=== PATIENT | male | born 1980 | race African-American/Black ===

== ENCOUNTER 2016-07-30 22:03 | Emergency (ER) | payer SELFPAY ==
[2016-07-31] MEDS ORDERED: SULFAMETHOXAZOLE/TRIMETHOPRIM 800-160 MG TABLET PO ONE (01:08)
--- NOTE | 2016-07-31 01:09 | ER Document Report ---
ED General - General Chief Complaint: Insect Bite Stated Complaint: POSSIBLE SPIDER BITE Notes: Patient is a 36-year-old male without past medical history who presents with 3 days of progressively worsening abscess in his right medial thigh. This is described as a constant, severely painful area. Touching the area worsens the pain. Nothing improves the pain. No history of similar symptoms in the past. He has not seen his primary care physician regarding today's concerns. He denies any associated constitutional symptoms or fever. TRAVEL OUTSIDE OF THE [place] IN LAST 30 DAYS: No - Related Data Allergies/Adverse Reactions: No Known Allergies Allergy (Unverified 07/30/16 22:34) Past Medical History - General Information source: Patient - Social History Smoking Status: Never Smoker Frequency of alcohol use: None Drug Abuse: None Lives with: Spouse/Significant other Family History: Reviewed & Not Pertinent Patient has suicidal ideation: No Patient has homicidal ideation: No Renal/ Medical History: Denies: Hx Peritoneal Dialysis Surgical Hx: Negative - Immunizations Hx Diphtheria, Pertussis, Tetanus Vaccination: Yes Review of Systems - Review of Systems Notes: Constitutional: Negative for fever. HENT: Negative for sore throat. Eyes: Negative for visual changes. Cardiovascular: Negative for chest pain. Respiratory: Negative for shortness of breath. Gastrointestinal: Negative for abdominal pain, vomiting or diarrhea. Genitourinary: Negative for dysuria. Musculoskeletal: Negative for back pain. Skin: Positive for right leg abscess. Neurological: Negative for headaches, weakness or numbness. 10 point ROS negative except as marked above and in HPI. Physical Exam - Vital signs Vitals: Temp Pulse Resp BP Pulse Ox 98.8 F 84 18 155/77 H 99 07/30/16 22:08 07/30/16 22:08 07/30/16 22:08 07/30/16 22:08 07/30/16 22:08 Interpretation: Hypertensive Notes: PHYSICAL EXAMINATION: GENERAL: Well-appearing, well-nourished and in no acute distress. HEAD: Atraumatic, normocephalic. EYES: sclera anicteric, conjunctiva are normal. ENT: Moist mucous membranes. NECK: Normal range of motion LUNGS: Normal work of breathing HEART: 2+ radial pulses bilaterally EXTREMITIES: no pitting or edema. No cyanosis. NEUROLOGICAL: No focal neurological deficits. Moves all extremities spontaneously and on command. PSYCH: Normal mood, normal affect. SKIN: Warm, Dry, normal turgor, there is a 2 x 2 centimeter abscess on the medial right Course - Re-evaluation Re-evalutation: 07/31/16 01:09 Patient presents with a right thigh abscess without surrounding cellulitis. Otherwise well in appearance, vitals show hypertension but are otherwise unremarkable. The abscess was incised and drained at the bedside without difficulty. Will be started on Bactrim. At this time will discharge with return precautions and follow-up recommendations. Verbal discharge instructions given a the bedside and opportunity for questions given. Medication warnings reviewed. Patient is in agreement with this plan and has verbalized understanding of return precautions and the need for primary care follow-up in the next 24-72 hours. - Vital Signs Vital signs: Temp Pulse Resp BP Pulse Ox 98.8 F 61 16 143/76 H 99 07/30/16 22:08 07/31/16 01:46 07/31/16 01:46 07/31/16 01:46 07/31/16 01:46 Procedures - Incision and Drainage Right Leg Type: Simple Anesthetic type: 1% Lidocaine mL's of anesthetic: 4 Blade size: 11 I&D procedure: Betadine prep applied Incision Method: Incision made by scalpel Amount/type of drainage: 5 mL of purulent drainage Discharge - Discharge Clinical Impression: Abscess of right thigh Condition: Good Disposition: HOME, SELF-CARE Additional Instructions: You were seen for an abscess that required drainage. Please clean this area with soap and water twice daily and apply a topical antibiotic. Dress the area after each cleaning. Please return if you develop fever, vomiting, the pain at the site worsens, you notice spreading redness from the area, or you have any other symptoms that are concerning to you. Prescriptions: Sulfamethoxazole/Trimethoprim [Bactrim Ds Tablet] 2 tab PO BID #10 tablet Forms: Elevated Blood Pressure
[2016-07-31] MEDS ORDERED: HYDROCODONE/ACETAMINOPHEN 5-325 MG TABLET PO ONE (01:32)
[2016-07-31 01:47] VITALS: BP 143/76
== END 2016-07-31 01:46 | disposition home or self-care (01) ==
LOC: ER 22:03
PROC: 0H9HXZZ Drainage of Right Upper Leg Skin, External Approach (ICD-10-PCS; principal; 2016-07-30)
DX: S70.361A Insect bite (nonvenomous), right thigh, initial encounter (principal); W57.XXXA Bitten or stung by nonvenomous insect and other nonvenomous arthropods, initial encounter; L02.415 Cutaneous abscess of right lower limb
CPT/HCPCS: 99283

== ENCOUNTER 2018-02-09 00:08 | Emergency (ER) | payer SELFPAY ==
[2018-02-09] MEDS ORDERED: DIPH/PERTUSS(ACELL)/TETANUS VAC/PF 0.5 ML SYR (>=10YO) IM ONE (00:22)
[2018-02-09] MEDS ORDERED: FENTANYL CITRATE INJ/PF 100 MCG/2 ML AMPUL IV PRN (00:22)
[2018-02-09] MEDS ORDERED: CEFAZOLIN 2 GM/D5W RTU 2 GM/50 ML RTUPB IV ONE (00:22)
[2018-02-09] MEDS ORDERED: DIPHENHYDRAMINE HCL 50 MG/ML VIAL ONE (00:40)
[2018-02-09] MEDS ORDERED: ONDANSETRON HCL INJ/PF 4 MG/2 ML SDV ONE (00:43)
[2018-02-09 00:53] LABS: ABSOLUTE BASOPHILS # (AUTO) 0.1 10^3/uL (0.0-0.2); ABSOLUTE EOSINOPHILS # (AUTO) 0.3 10^3/uL (0.0-0.6); ABSOLUTE LYMPHOCYTES (AUTO) 2.3 10^3/uL (0.5-4.7); ABSOLUTE MONOCYTES (AUTO) 0.5 10^3/uL (0.1-1.4); EOSINOPHILS % (AUTO) 4.6 % (0-6); HEMATOCRIT 41.3 % (37.9-51.0); HEMOGLOBIN 14.2 g/dL (13.5-17.0); LYMPHOCYTES % (AUTO) 37.6 % (13-45); MEAN CORPUSCULAR HEMOGLOBIN 29.1 pg (27.0-33.4); MEAN CORPUSCULAR HGB CONC 34.5 g/dL (32.0-36.0); MEAN CORPUSCULAR VOLUME 85 fl (80-97); MONOCYTES % (AUTO) 7.8 % (3-13); PLATELET COUNT 244 10^3/uL (150-450); RED BLOOD COUNT 4.88 10^6/uL (4.35-5.55); RED CELL DISTRIBUTION WIDTH 13.8 % (11.5-14.0); TOTAL CELLS COUNTED % (AUTO) 100 %; WHITE BLOOD COUNT 6.1 10^3/uL (4.0-10.5)
[2018-02-09 01:16] LABS: ANION GAP 12 (5-19); BLOOD UREA NITROGEN 18 mg/dL (7-20); CARBON DIOXIDE 23 mmol/L (22-30); CHLORIDE 106 mmol/L (98-107); GLUCOSE 110 mg/dL (75-110); POTASSIUM 4.5 mmol/L (3.6-5.0); SODIUM 140.9 mmol/L (137-145)
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
[2018-02-09 02:18] LABS: HEMATOCRIT 39.1 % (37.9-51.0); HEMOGLOBIN 13.2 g/dL (13.5-17.0); MEAN CORPUSCULAR HEMOGLOBIN 28.6 pg (27.0-33.4); MEAN CORPUSCULAR HGB CONC 33.8 g/dL (32.0-36.0); MEAN CORPUSCULAR VOLUME 85 fl (80-97); PLATELET COUNT 179 10^3/uL (150-450); RED BLOOD COUNT 4.61 10^6/uL (4.35-5.55); RED CELL DISTRIBUTION WIDTH 13.7 % (11.5-14.0); WHITE BLOOD COUNT 6.1 10^3/uL (4.0-10.5)
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
[2018-02-09 04:33] VITALS: BP 128/79
== END 2018-02-09 03:20 | disposition home or self-care (01) ==
LOC: ER 00:08
DX: S61.212A Laceration without foreign body of right middle finger without damage to nail, initial encounter (principal); S61.214A Laceration without foreign body of right ring finger without damage to nail, initial encounter; S61.011A Laceration without foreign body of right thumb without damage to nail, initial encounter; S21.112A Laceration without foreign body of left front wall of thorax without penetration into thoracic cavity, initial encounter; S41.112A Laceration without foreign body of left upper arm, initial encounter; X99.1XXA Assault by knife, initial encounter; Y93.89 Activity, other specified; Y92.89 Other specified places as the place of occurrence of the external cause; R00.0 Tachycardia, unspecified; Z23 Encounter for immunization
CPT/HCPCS: 99284; 90471; 96375; 96365; 86900; 86901; 36415; 86850; 85025; 85027; 80048; 71045; 90715; 12007; J3010; J0690

== ENCOUNTER 2018-02-17 14:55 | Day surgery (SDC) | payer SELFPAY ==
[2018-02-13 11:25] LABS: HEMOGLOBIN 13.2 g/dL (13.5-17.0); MEAN CORPUSCULAR HEMOGLOBIN 29.4 pg (27.0-33.4); MEAN CORPUSCULAR HGB CONC 34.8 g/dL (32.0-36.0); MEAN CORPUSCULAR VOLUME 85 fl (80-97); PLATELET COUNT 215 10^3/uL (150-450); RED BLOOD COUNT 4.49 10^6/uL (4.35-5.55); RED CELL DISTRIBUTION WIDTH 13.7 % (11.5-14.0); WHITE BLOOD COUNT 4.7 10^3/uL (4.0-10.5)
--- NOTE | 2018-02-13 11:34 | RADIOLOGY REPORT (SQ) ---
EXAM DESCRIPTION: CHEST PA/LATERAL COMPLETED DATE/TIME: 02/13/2018 11:07 am REASON FOR STUDY: PRE-OP COMPARISON: 02/09/2018 EXAM PARAMETERS: NUMBER OF VIEWS: two views TECHNIQUE: Digital Frontal and Lateral radiographic views of the chest acquired. RADIATION DOSE: NA LIMITATIONS: none FINDINGS: LUNGS AND PLEURA: No opacities, masses or pneumothorax. No pleural effusion. MEDIASTINUM AND HILAR STRUCTURES: No masses or contour abnormalities. HEART AND VASCULAR STRUCTURES: Heart normal size. No evidence for failure. BONES: No acute findings. HARDWARE: None in the chest. OTHER: No other significant finding. IMPRESSION: NO SIGNIFICANT RADIOGRAPHIC FINDING IN THE CHEST. TECHNICAL DOCUMENTATION: JOB ID: [id number] [employer]- All Rights Reserved Reading location - IP/workstation name: [email or web address]
[2018-02-13 11:50] LABS: ANION GAP 14 (5-19); BLOOD UREA NITROGEN 12 mg/dL (7-20); CALCIUM 9.4 mg/dL (8.4-10.2); CARBON DIOXIDE 25 mmol/L (22-30); CHLORIDE 104 mmol/L (98-107); GLUCOSE 98 mg/dL (75-110); SODIUM 142.5 mmol/L (137-145)
--- NOTE | 2018-02-13 20:33 | EKG REPORT ---
SEVERITY:- OTHERWISE NORMAL ECG - SINUS BRADYCARDIA ST ELEV, PROBABLE NORMAL EARLY REPOL PATTERN : Confirmed by: Rock Waters 13-Feb-2018 17:32:57
[~2018-02-17 14:55] MED LIST: CEFAZOLIN 2 GM/D5W RTU 2 GM/50 ML RTUPB IV PRN; LACTATED RINGERS 1000 ML IV PRN; LIDOCAINE 0.5% INJ-PF (5 MG/ML) 50 ML SDV SUBCUT PRN; SUCCINYLCHOLINE CHLORIDE INJ 200 MG/10 ML VIAL ONE
[2018-02-17] MEDS ORDERED: LIDOCAINE 2% INJ-PF (20 MG/ML) 10 ML AMPUL ONE (16:35)
[2018-02-17] MEDS ORDERED: MIDAZOLAM 2 MG/2 ML INJ ONE (16:35)
[2018-02-17] MEDS ORDERED: FENTANYL CITRATE INJ/PF 100 MCG/2 ML AMPUL ONE ×2 (16:35)
[2018-02-17] MEDS ORDERED: ONDANSETRON HCL INJ/PF 4 MG/2 ML SDV ONE (16:35)
[2018-02-17] MEDS ORDERED: DEXAMETHASONE SOD PHOSPHATE INJ 4 MG/1 ML VIAL ONE (16:35)
[2018-02-17] MEDS ORDERED: PROPOFOL INJ 200 MG/20 ML VIAL IV ONE (16:36)
[2018-02-17] MEDS ORDERED: ACETAMINOPHEN 1,000 MG/100 ML RTUPB IV ONE (16:36)
[2018-02-17] MEDS ORDERED: ONDANSETRON HCL INJ/PF 4 MG/2 ML SDV IV PRN ×2 (17:34→19:33)
[2018-02-17] MEDS ORDERED: DIPHENHYDRAMINE HCL 50 MG/ML VIAL IV PRN (17:34)
[2018-02-17] MEDS ORDERED: MEPERIDINE HCL/PF INJ 25 MG/1 ML DISP.SYRIN IV PRN (17:34)
[2018-02-17] MEDS ORDERED: MORPHINE SULFATE 10 MG/ML INJ IV PRN (17:34)
[2018-02-17] MEDS ORDERED: PROMETHAZINE HCL INJ 25 MG/1 ML VIAL IV PRN ×2 (17:34)
[2018-02-17] MEDS ORDERED: FENTANYL CITRATE INJ/PF 100 MCG/2 ML AMPUL IV PRN ×3 (17:34)
[2018-02-17] MEDS ORDERED: BUPIVACAINE HCL 0.5 % INJ/PF 30 ML SDV ONE (17:38)
[2018-02-17] MEDS ORDERED: DEXMEDETOMIDINE INJ 80 MCG/20 ML VIAL IV ONE (18:42)
[2018-02-17] MEDS ORDERED: OXYCODONE-ACETAMINOPHEN 5-325 MG TABLET PO PRN (19:33)
[2018-02-17] MEDS ORDERED: HYDROMORPHONE HCL INJ/PF 2 MG/ML AMPULE IV PRN (19:33)
--- NOTE | 2018-02-17 20:01 | Discharge Summary ---
Discharge Summary (SDC) - Discharge Final Diagnosis: Right thumb/ring finger flexor tendon laceration Date of Surgery: 02/17/18 Discharge Date: 02/17/18 Condition: Good Treatment or Instructions: Schedule Follow Up w/ Dr. Lm Gordon @ [facility] for Surgery to be seen in 10-14 days or as scheduled [place]: [place]: [place]: Ice and elevate Keep splint clean/dry/intact. If your fingers become numb please unwrap the Wesley wrap but leave the splint in place, if the sensation does not return within 30 minutes please return to the emergency department. Please use ibuprofen (Motrin or Advil) 600-800 mg every 8 hours as needed for pain or fever DO NOT TAKE w/ TORADOL may use once TORADOL complete. You may also use acetaminophen (Tylenol) 1000 mg every 4-6 hours as needed for pain or fever. Please be aware that many medications contain acetaminophen, do not exceed a total of 1000 mg of acetaminophen every 6 hours. If ibuprofen and acetaminophen are not sufficient for your pain you may take the Percocet/[place]. Please be aware that the Percocet/[place] does contain Tylenol. Stool softener of choice when on pain medication. Prescriptions: Ketorolac Tromethamine [Toradol 10 mg Tablet] 10 mg PO Q8 PRN #10 tablet PRN Reason: Oxycodone HCl/Acetaminophen [Percocet 5-325 mg Tablet] 1 tab PO Q6 PRN #35 tab PRN Reason: Referrals: LM GORDON DO [ACTIVE STAFF] - 03/02/18 1:30 pm Discharge Diet: As Tolerated Respiratory Treatments at Home: Deep Breathing/Coughing Discharge Activity: No Lifting Over 10 Pounds, No Lifting/Push/Pulling Report the Following to Your Physician Immediately: Fever over 101 Degrees, Unusual Bleeding, Redness, Swelling, Warmth, Increased Soreness
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
[2018-02-17 21:56] VITALS: BP 155/60
== END 2018-02-17 23:04 | disposition home or self-care (01) ==
LOC: OROUT 14:55 → 4S 20:29 → OROUT 23:04
PROVIDERS: ATTEND Orthopaedic Surgery
DX: S66.124A Laceration of flexor muscle, fascia and tendon of right ring finger at wrist and hand level, initial encounter (principal); S64.494A Injury of digital nerve of right ring finger, initial encounter; S64.01XA Injury of ulnar nerve at wrist and hand level of right arm, initial encounter; S65.111A Laceration of radial artery at wrist and hand level of right arm, initial encounter; S61.214A Laceration without foreign body of right ring finger without damage to nail, initial encounter; S61.011A Laceration without foreign body of right thumb without damage to nail, initial encounter; X99.1XXA Assault by knife, initial encounter; Z01.810 Encounter for preprocedural cardiovascular examination; Z01.811 Encounter for preprocedural respiratory examination; Z01.812 Encounter for preprocedural laboratory examination
CPT/HCPCS: 93010; 93005; 36415; 85027; 80048; 71046; 64836; 64831; 64832; 26356; 35207; C9250; J2250; J3490 ×3; J1100; J3010; J0330; J2405; J2704; J0690; J0131; 1810

== ENCOUNTER 2018-02-20 10:33 | Emergency (ER) | payer OTHER ==
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
[2018-02-20 11:54] VITALS: BP 156/92
== END 2018-02-20 12:00 | disposition home or self-care (01) ==
LOC: ER 10:33
DX: S41.112D Laceration without foreign body of left upper arm, subsequent encounter (principal); S21.112D Laceration without foreign body of left front wall of thorax without penetration into thoracic cavity, subsequent encounter; W26.0XXD Contact with knife, subsequent encounter
CPT/HCPCS: 99282

== ENCOUNTER 2018-02-25 14:46 | Emergency (ER) | payer OTHER ==
[2018-02-25 14:51] VITALS: BP 135/77
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
== END 2018-02-25 16:01 | disposition home or self-care (01) ==
LOC: ER 14:46
DX: S21.102D Unspecified open wound of left front wall of thorax without penetration into thoracic cavity, subsequent encounter (principal); W45.8XXD Other foreign body or object entering through skin, subsequent encounter

== ENCOUNTER 2019-12-03 17:52 | Emergency (ER) | payer OTHER ==
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
[2019-12-03] MEDS ORDERED: IBUPROFEN 800 MG TABLET PO ONE (20:47)
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
[2019-12-03 22:37] VITALS: BP 158/93
== END 2019-12-03 22:37 | disposition home or self-care (01) ==
LOC: ER 17:52
DX: M25.462 Effusion, left knee (principal); R51 Headache; V49.50XA Passenger injured in collision with unspecified motor vehicles in traffic accident, initial encounter; R55 Syncope and collapse; M50.30 Other cervical disc degeneration, unspecified cervical region; M47.812 Spondylosis without myelopathy or radiculopathy, cervical region; R53.81 Other malaise; M25.50 Pain in unspecified joint
CPT/HCPCS: 70450; 72125; 99284